=== PATIENT | female | born 1960 | race American Indian/Alaskan Native ===

== ENCOUNTER 2017-05-24 07:21 | Outpatient (CLI) | payer BC ==
--- NOTE | 2017-05-25 08:26 | Mammography Report ---
BILATERAL DIGITAL SCREENING MAMMOGRAM with CAD and 3-D TOMOSYNTHESIS: 05/24/17 CLINICAL: Routine screening. COMPARISON:08/19/15 FINDINGS: The breasts are heterogeneously dense, which may obscure small masses. A 1.3 cm oval circumscribed right retroareolar mass or cyst at 12 o'clock requires additional imaging. No architectural distortion or suspicious calcifications. The left breast is negative. IMPRESSION: A right retroareolar mass or cyst requiring further imaging. BI-RADS CATEGORY: 0--Needs Additional Imaging RECOMMENDATION: Recall for a targeted right breast ultrasound. COMMENT: Patient follow-up letters are generated by our [employer] application.
== END 2017-05-24 07:22 | disposition home or self-care (01) ==
LOC: MAMMO 07:21
PROVIDERS: ATTEND Obstetrics & Gynecology Gynecology
DX: Z12.31 Encounter for screening mammogram for malignant neoplasm of breast (principal)
CPT/HCPCS: 77063; G0202; 77067

== ENCOUNTER 2017-07-18 07:35 | Outpatient (CLI) | payer BC ==
--- NOTE | 2017-07-18 16:46 | Ultrasound Report ---
RIGHT BREAST ULTRASOUND: 07/18/17 07:35:00 CLINICAL: Abnormal screening mammogram. COMPARISON: 05/24/17 mammogram. FINDINGS: Targeted ultrasoundof the right breast was performed and demonstrated an oval complex cyst versus solid mass at 12 o'clock 3 cm from the nipple measuring 1.3 x 0.5 x 1.0 cm. This correlates with the mammographic finding. IMPRESSION: A probably benign 1.3 cm complex cyst versus solid mass at 12 o'clock 3 cm from the nipple. It has benign morphology which favors either a complex cyst or benign fibroadenoma. BI-RADS 3 - - Probably Benign RECOMMENDATION: Six month followup right breast ultrasound.
== END 2017-07-18 07:36 | disposition home or self-care (01) ==
LOC: US 07:35
PROVIDERS: ATTEND Obstetrics & Gynecology Gynecology
DX: R92.8 Other abnormal and inconclusive findings on diagnostic imaging of breast (principal)

== ENCOUNTER 2018-01-10 07:03 | Outpatient (CLI) | payer BC ==
--- NOTE | 2018-01-10 08:11 | Ultrasound Report ---
RIGHT BREAST ULTRASOUND: 01/10/18 07:03:00 CLINICAL: Six month followup. COMPARISON: 07/18/17 FINDINGS: Ultrasound of the right breast demonstrated a stable oval complex cyst versus solid mass at 12 o'clock 3 cm from the nipple. It measures 1.3 x 0.7 x 1.0 cm. IMPRESSION: A stable 1.3 cm complex cyst versus oval mass at 12 o'clock right breast. BI-RADS 3 - - Probably Benign RECOMMENDATION: Six month followup right breast ultrasound.
== END 2018-01-10 07:04 | disposition home or self-care (01) ==
LOC: US 07:03
PROVIDERS: ATTEND Obstetrics & Gynecology Gynecology
DX: N92.5 Other specified irregular menstruation (principal); N60.01 Solitary cyst of right breast

== ENCOUNTER 2020-08-19 08:28 | Outpatient (CLI) | payer BC ==
--- NOTE | 2020-08-19 11:58 | Mammography Report ---
DIGITAL SCREENING MAMMOGRAM WITH CAD, 08/19/2020 CLINICAL INFORMATION / INDICATION: Routine screening mammography. TECHNIQUE: Digital bilateral 2D mammography was obtained in the craniocaudal and mediolateral obliqu e projections. This examination was interpreted with the benefit of Computer-Aided Detection analysis . COMPARISON: 07/10/2019, 05/30/2018, 05/24/2017 FINDINGS: Breast Density: There are scattered areas of fibroglandular density. No dominant mass, suspicious calcifications, or architectural distortion in either breast. IMPRESSION: No mammographic evidence of malignancy. Follow up recommendation: Routine yearly BI-RADS Category 1: Negative. A "normal" or negative report should not discourage follow up or biopsy of a clinically significant f inding. A written summary of these findings will be mailed to the patient. The patient will be entered into a mammography reporting system which will generate a reminder letter for the patient's next appointmen t at the appropriate interval. The [employer] recommends yearly mammograms starting at age 40 and continuing as l carol as a woman is in good health. Breast MRI is recommended for women with an approximate 20-25% or greater lifetime risk of breast cancer, including women with a strong family history of breast or ova estrella cancer or who have been treated for Hodgkin's disease. Signer Name: Debra Murphy MD Signed: 08/19/2020 11:53 AM Workstation Name: [employer]
== END 2020-08-19 08:29 | disposition home or self-care (01) ==
LOC: SPVWC 08:28
PROVIDERS: ATTEND Obstetrics & Gynecology
DX: Z12.31 Encounter for screening mammogram for malignant neoplasm of breast (principal)
CPT/HCPCS: 77067

== ENCOUNTER 2021-12-05 06:54 | Outpatient (CLI) | payer BC ==
--- NOTE | 2021-12-06 11:48 | Mammography Report ---
DIGITAL SCREENING MAMMOGRAM WITH CAD, 12/05/2021 CLINICAL INFORMATION / INDICATION: Routine screening mammography. TECHNIQUE: Digital bilateral 2D mammography was obtained in the craniocaudal and mediolateral obliqu e projections. This examination was interpreted with the benefit of Computer-Aided Detection analysis . COMPARISON: 08/19/2020, 07/10/2019, 05/30/2018 FINDINGS: Breast Density: The breasts are heterogeneously dense, which may obscure small masses. No dominant mass, suspicious calcifications, or architectural distortion in either breast. There has been no significant interval change. IMPRESSION: No mammographic evidence of malignancy. Follow up recommendation: Routine yearly screening mammogram. BI-RADS Category 1: NEGATIVE A "normal" or negative report should not discourage follow up or biopsy of a clinically significant f inding. A written summary of these findings will be mailed to the patient. The patient will be entered into a mammography reporting system which will generate a reminder letter for the patient's next appointmen t at the appropriate interval. The [employer] recommends yearly mammograms starting at age 40 and continuing as l carol as a woman is in good health. Breast MRI is recommended for women with an approximate 20-25% or greater lifetime risk of breast cancer, including women with a strong family history of breast or ova estrella cancer or who have been treated for Hodgkin's disease. Signer Name: Debra Murphy MD Signed: 12/06/2021 11:07 AM Workstation Name: [id number]
== END 2021-12-05 06:55 | disposition home or self-care (01) ==
LOC: MAMMO 06:54
PROVIDERS: ATTEND Internal Medicine
DX: Z12.31 Encounter for screening mammogram for malignant neoplasm of breast (principal)
CPT/HCPCS: 77067